=== PATIENT | female | born 1975 | race Caucasian/White ===

== ENCOUNTER 2016-10-05 11:26 | Emergency (ER) | payer MEDICAID ==
[2016-10-05] MEDS ORDERED: KETOROLAC 30 MG/ML VIAL ONE (11:58)
== END 2016-10-05 13:35 | disposition home or self-care (01) ==
LOC: ER 11:26
DX: J20.8 Acute bronchitis due to other specified organisms (principal); M94.0 Chondrocostal junction syndrome [Tietze]; M79.1 Myalgia; F17.210 Nicotine dependence, cigarettes, uncomplicated
CPT/HCPCS: 36415; 71020; 80053; 82553; 84484; 85025; 87804; 93005; 96374